=== PATIENT | male | born 1990 | race Caucasian/White ===

== ENCOUNTER 2018-03-26 17:00 | Observation (INO) ==
[2018-03-26] MEDS ORDERED: 0.9 % Sodium Chloride 1,000 ML IVC ONE (17:24)
--- NOTE | 2018-03-26 17:26 | Emergency Department Note ---
Disposition Clinical Impression: Suicidal ideation Drug-induced psychotic disorder Qualifiers: Complication of substance-induced condition: with unspecified complication Qualified Code(s): F19.959 - Other psychoactive substance use, unspecified with psychoactive substance-induced psychotic disorder, unspecified Disposition: Admitted As Inpatient General Adult HPI - General Chief complaint: ED Psychiatric Symptoms Stated complaint: SI,Took 2500Mg Dextromethphan Time Seen by Provider: 03/26/18 17:09 Source: patient Limitations: no limitations Nursing Notes Reviewed: Yes Vital Signs Reviewed: Yes - History of Present Illness HPI Narrative: Attestation note: Patient was seen with the emergency medicine resident/nurse practitioner/physician environmental services assistant/transitional resident/medical student: Dr. BRI LUBIN I have personally performed a face to face evaluation on this patient. I have reviewed and agree with history and physical examination patient management and disposition. Briefly the salient points of the case are as follows: 27-year-old male by EMS for intentional overdose on dextromethorphan. Patient took approximately 2500 mg dextromethorphan about 2 hours prior to arrival with a specific stated intent to harm or kill himself. History of depression ADHD he has had suicidal ideations in the past. Patient is cooperative also verbose and slightly agitated. Patient can EKG screening labs admission anticipated for medical clearance to the hospitalist service. We have consulted the poison control center, the [facility] and observation supportive care. Disposition pending admission anticipated. Pain Scale: 0 - Related Data Previous Rx's Medication Instructions Recorded BuPROPion XL (24 HR) [Wellbutrin 150 mg PO DAILY #30 tab.er.24h 02/19/16 Xl] Bupropion HCl [Wellbutrin Xl] 300 mg PO DAILY #10 tab.er.24h 03/11/18 Prazosin HCl [Minipress] 2 mg PO DAILY #10 capsule 03/11/18 Naproxen [Naprosyn] 500 mg PO BID #20 tablet 03/16/18 Allergies Allergy/AdvReac Type Severity Reaction Status Date / Time azithromycin [From Zithromax] Allergy Rash Verified 08/28/17 01:47 Past Medical History - Past Medical History Medical history: Reports: seizures Surgical history: Reports: tonsilectomy Psychiatric history: Reports: anxiety, depression, prior suicide attempt, previous psychiatric hospitalization - Social History Smoking Status: Former smoker Smokeless Tobacco Status: No Alcohol use: Reports: none Drug use: Reports: none Physical Exam - General Limitations: no limitations General appearance: alert, in no apparent distress Course Vital Signs Temperature 98.0 F 03/26/18 17:04 Pulse Rate 90 03/26/18 17:04 Respiratory Rate 20 03/26/18 17:04 Blood Pressure 175/90 03/26/18 17:04 O2 Sat by Pulse Oximetry 97 03/26/18 17:04 Temperature 98.0 F 03/26/18 17:04 Pulse Rate 90 03/26/18 17:04 Respiratory Rate 20 03/26/18 17:04 Blood Pressure 175/90 03/26/18 17:04 O2 Sat by Pulse Oximetry 97 03/26/18 17:04 Oxygen Delivery Oxygen Delivery Room Air
--- NOTE | 2018-03-26 17:28 | Emergency Department Note ---
Disposition Clinical Impression: Suicidal ideation, Suicide attempt Drug-induced psychotic disorder Qualifiers: Complication of substance-induced condition: with unspecified complication Qualified Code(s): F19.959 - Other psychoactive substance use, unspecified with psychoactive substance-induced psychotic disorder, unspecified Overdose Qualifiers: Encounter type: initial encounter Injury intent: intentional self-harm Qualified Code(s): T50.902A - Poisoning by unspecified drugs, medicaments and biological substances, intentional self-harm, initial encounter Disposition: Admitted As Inpatient Condition: Fair Referrals: NONE,PCP [Primary Care Provider] - Forms: ED Satisfaction Letter General Adult HPI - General Chief complaint: ED Psychiatric Symptoms Stated complaint: SI,Took 2500Mg Dextromethphan Time Seen by Provider: 03/26/18 17:09 Source: patient Mode of arrival: private vehicle Limitations: no limitations Nursing Notes Reviewed: Yes Vital Signs Reviewed: Yes - History of Present Illness HPI Narrative: 27-year-old male with past medical history including anxiety and depression, ADHD, prior history of IV drug use, presenting with chief complaint of suicidal ideation and attempt with drug overdose, 2 hours prior to arrival. Patient states he is under increased stressors. He has been having suicidal ideation. He states he usually gets high by taking dextromethorphan, 750 mg. He states 2 hours ago, he intentionally took 2500 mg Dextromethorphan (Delsym) 2 intentionally harm himself. He said it was an attempt to kill himself. He denies homicidal ideation. At present, he denies auditory visual hallucinations, however he states the medication does give him dissociation and he does start hearing things. He states he also took a monster and 5 hour energy drinks. He denies alcohol use or other IV drug use. Presenting for further evaluation. Denies chest pain, shortness of breath, abdominal pain, nausea, vomiting, diarrhea, any other complaints. Pain Scale: 0 - Related Data Previous Rx's Medication Instructions Recorded BuPROPion XL (24 HR) [Wellbutrin 150 mg PO DAILY #30 tab.er.24h 02/19/16 Xl] Bupropion HCl [Wellbutrin Xl] 300 mg PO DAILY #10 tab.er.24h 03/11/18 Prazosin HCl [Minipress] 2 mg PO DAILY #10 capsule 03/11/18 Naproxen [Naprosyn] 500 mg PO BID #20 tablet 03/16/18 Allergies Allergy/AdvReac Type Severity Reaction Status Date / Time azithromycin [From Zithromax] Allergy Rash Verified 08/28/17 01:47 All systems ED: reviewed and negative except as stated. Review of Systems: As Per HPI Constitutional: Denies: fever, chills ENT ED: Denies: congestion Cardiovascular: Denies: chest pain, palpitations Respiratory: Denies: cough, dyspnea Gastrointestinal: Denies: abdominal pain, nausea, vomiting, diarrhea Genitourinary: Denies: dysuria Neurological: Denies: headache, weakness Psychiatric: Reports: anxiety, depression, suicidal thoughts. Denies: auditory hallucinations, visual hallucinations Past Medical History - Past Medical History Attestation: Yes The following information was validated with the patient. Source: patient Medical history: Reports: seizures Surgical history: Reports: tonsilectomy Psychiatric history: Reports: anxiety, depression, prior suicide attempt, previous psychiatric hospitalization - Social History Smoking Status: Former smoker Smokeless Tobacco Status: No Alcohol use: Reports: none Drug use: Reports: none Physical Exam - General Limitations: no limitations General appearance: alert, in no apparent distress - Head Head exam: atraumatic, normocephalic - Eye Eye exam: Present: normal appearance, PERRL, EOMI - ENT ENT exam: normal exam, normal oropharynx, mucous membranes moist - Neck Neck exam: Present: normal inspection, trachea midline - Chest Chest inspection: Present: normal inspection, symmetric chest wall rise - Respiratory Respiratory exam: Present: normal lung sounds bilaterally. Absent: respiratory distress, wheezes - Cardiovascular Cardiovascular exam: Present: regular rate, normal rhythm, normal heart sounds - Abdominal Exam Abdominal exam: Present: soft, Non-Tender. Absent: tenderness, distention, guarding, rebound, rigidity - Extremities Exam Extremities exam: Present: normal inspection, full ROM, normal capillary refill. Absent: tenderness, pedal edema - Neurological Exam Neurological exam: Present: alert, oriented X3, CN II-XII intact - Psychiatric Psychiatric exam: Present: anxious, suicidal ideation - Skin Skin exam: Present: warm, dry, intact, normal color Course Vital Signs Temperature 98.0 F 03/26/18 17:04 Pulse Rate 90 03/26/18 17:04 Respiratory Rate 20 03/26/18 17:04 Blood Pressure 175/90 03/26/18 17:04 O2 Sat by Pulse Oximetry 97 03/26/18 17:04 Temperature 98.0 F 03/26/18 17:04 Pulse Rate 98 03/26/18 18:00 Respiratory Rate 14 03/26/18 18:00 Blood Pressure 157/103 03/26/18 18:00 O2 Sat by Pulse Oximetry 99 03/26/18 17:30 Oxygen Delivery Oxygen Delivery Room Air Medical Decision Making - MDM Narrative Medical decision making narrative: EKG, CBC, BMP, TSH, salicylate, ethanol level, acetaminophen level, urinalysis and urine drug screen will be obtained for medical clearance. Discussed with poison control CATINA Clark at 1720, supportive care and observation for 4-8 hours for dextromethorphan (Delsym) overdose. Also recommended adding magnesium and hepatic panel to the patient's labs. We will give 1 L IV fluids. Patient will be admitted to medical floor for observation overnight and once medically cleared, will have psychiatry consult. The pink slip has also been filled out and signed. 18:00 Labs reviewed. Urinalysis and urine tox is negative. Alcohol level, acetaminophen, salicylate level are not elevated. No electrolyte abnormality. Magnesium is normal. Hepatic panel is normal. Discussed with the hospitalist, Dr. Villa, who accepts admission. Once the patient is medically cleared, he will be evaluated by psychiatry/ 1a for his suicidal ideation and attempt. Patient's heart rate remains in the 80s to 90s, blood pressure slightly elevated 157/103, otherwise vitals have remained stable. The patient has no new complaints at this time. - Medical Records Medical records reviewed: Yes I reviewed the patient's medical records. - Lab Data Lab results reviewed: Yes I reviewed the patient's lab results. Result diagrams: 03/26/18 17:15 03/26/18 17:15 Lab Results 03/26/18 03/26/18 03/26/18 Range/Units 17:15 17:15 17:20 WBC 11.8 H (4.3-11.1) K/mcL RBC 4.80 (4.19-5.50) M/mcL Hgb 14.1 (12.9-16.9) g/dL Hct 41.7 (37.5-50.1) % MCV 86.9 (83.0-100.0) fL MCH 29.4 (28.0-33.3) pg MCHC 33.8 (31.6-35.5) g/dL RDW 13.1 (11.5-14.5) % Plt Count 325 (140-400) K/mcL MPV 9.3 L (9.4-12.4) fL Immature Gran % 0.3 (0-4) % Seg Neutrophils % 60.8 % Lymphocytes % 30.2 % Monocytes % 6.8 % Eosinophils % 1.4 % Basophils % 0.5 % Neutrophils # 7.2 (1.6-8.9) K/mcL Lymphocytes # 3.6 (0.6-4.6) K/mcL Monocytes # 0.8 (0.0-1.3) K/mcL Eosinophils # 0.2 (0.0-0.6) K/mcL Basophils # 0.1 (0.0-0.2) K/mcL Sodium 138 (136-145) mEq/L Potassium 4.0 (3.5-5.1) mEq/L Chloride 105 (98-107) mEq/L Carbon Dioxide 23 (23-29) mEq/L BUN 15 (6-20) mg/dL Creatinine 0.87 (0.70-1.30) mg/dL Est GFR ( Amer) > 60 (> 60) Est GFR (Non-Af Amer) > 60 (> 60) BUN/Creatinine Ratio 17 (6-26) Glucose 102 (70-105) mg/dL Calculated Osmolality 287 (280-300) Calcium 10.1 (8.6-10.3) mg/dL Magnesium 2.2 (1.6-2.6) mg/dL Total Bilirubin 0.3 (0.3-1.0) mg/dL Direct Bilirubin 0.0 (0.0-0.2) mg/dL Indirect Bilirubin 0.3 (0.0-1.2) mg/dL AST 24 (13-39) Units/L ALT 21 (7-52) Units/L Alkaline Phosphatase 89 (34-104) Units/L Serum Total Protein 7.0 (6.4-8.9) g/dL Albumin 4.8 (3.5-5.7) g/dL Globulin 2.2 L (2.4-3.5) g/dL Albumin/Globulin Ratio 2.2 (1.1-2.2) TSH 1.179 (0.340-5.600) mcIU/mL Urine Color Yellow (Yellow) Urine Clarity Clear (Clear) Urine pH 6.5 (5.0-8.0) pH Units Ur Specific [place] 1.017 (1.010-1.025) Urine Protein Negative (Neg-Trace) mg/dL Urine Glucose (UA) Normal (Normal) mg/dL Urine Ketones Negative (Negative) mg/dL Urine Blood Negative (Negative) Urine Nitrite Negative (Negative) Urine Bilirubin Negative (Negative) Urine Urobilinogen Normal (Normal) mg/dL Ur Leukocyte Esterase Negative (Negative) Salicylates < 2.5 L (15.0-30.0) mg/dL Urine Opiates Screen (Dtkwrd=560) ng/mL Acetaminophen < 10 L (10-20) mcg/mL Ur Barbiturates Screen (Zteeys=633) ng/mL Ur Phencyclidine Scrn (Cutoff=25) ng/mL Ur Amphetamines Screen (Xcnldh=6529) ng/mL U Benzodiazepines Scrn (Tqvsck=222) ng/mL Urine Cocaine Screen (Cutoff= 300) ng/mL U Marijuana (THC) Screen (Cutoff = 50) ng/mL Ur Drug Screen Interp Ethyl Alcohol < 10 (Less than 10) mg/dL 03/26/18 Range/Units 17:20 WBC (4.3-11.1) K/mcL RBC (4.19-5.50) M/mcL Hgb (12.9-16.9) g/dL Hct (37.5-50.1) % MCV (83.0-100.0) fL MCH (28.0-33.3) pg MCHC (31.6-35.5) g/dL RDW (11.5-14.5) % Plt Count (140-400) K/mcL MPV (9.4-12.4) fL Immature Gran % (0-4) % Seg Neutrophils % % Lymphocytes % % Monocytes % % Eosinophils % % Basophils % % Neutrophils # (1.6-8.9) K/mcL Lymphocytes # (0.6-4.6) K/mcL Monocytes # (0.0-1.3) K/mcL Eosinophils # (0.0-0.6) K/mcL Basophils # (0.0-0.2) K/mcL Sodium (136-145) mEq/L Potassium (3.5-5.1) mEq/L Chloride (98-107) mEq/L Carbon Dioxide (23-29) mEq/L BUN (6-20) mg/dL Creatinine (0.70-1.30) mg/dL Est GFR ( Amer) (> 60) Est GFR (Non-Af Amer) (> 60) BUN/Creatinine Ratio (6-26) Glucose (70-105) mg/dL Calculated Osmolality (280-300) Calcium (8.6-10.3) mg/dL Magnesium (1.6-2.6) mg/dL Total Bilirubin (0.3-1.0) mg/dL Direct Bilirubin (0.0-0.2) mg/dL Indirect Bilirubin (0.0-1.2) mg/dL AST (13-39) Units/L ALT (7-52) Units/L Alkaline Phosphatase (34-104) Units/L Serum Total Protein (6.4-8.9) g/dL Albumin (3.5-5.7) g/dL Globulin (2.4-3.5) g/dL Albumin/Globulin Ratio (1.1-2.2) TSH (0.340-5.600) mcIU/mL Urine Color (Yellow) Urine Clarity (Clear) Urine pH (5.0-8.0) pH Units Ur Specific [place] (1.010-1.025) Urine Protein (Neg-Trace) mg/dL Urine Glucose (UA) (Normal) mg/dL Urine Ketones (Negative) mg/dL Urine Blood (Negative) Urine Nitrite (Negative) Urine Bilirubin (Negative) Urine Urobilinogen (Normal) mg/dL Ur Leukocyte Esterase (Negative) Salicylates (15.0-30.0) mg/dL Urine Opiates Screen Negative (Eqirxw=814) ng/mL Acetaminophen (10-20) mcg/mL Ur Barbiturates Screen Negative (Tojceg=219) ng/mL Ur Phencyclidine Scrn Negative (Cutoff=25) ng/mL Ur Amphetamines Screen Negative (Ahhmjs=8142) ng/mL U Benzodiazepines Scrn Negative (Xuoimc=487) ng/mL Urine Cocaine Screen Negative (Cutoff= 300) ng/mL U Marijuana (THC) Screen Negative (Cutoff = 50) ng/mL Ur Drug Screen Interp See Below Ethyl Alcohol (Less than 10) mg/dL - EKG Data EKG #1 EKG attestation: Yes I reviewed and interpreted this EKG. EKG results narrative: EKG obtained today at 1727 shows sinus rhythm with heart rate 73. PT interval 147. QRS duration 71. QTC 410. No ST elevation or depression. Compared to old EKG on 01/10/2018 with no acute changes
[2018-03-26 17:33] LABS: Basophils # 0.1 K/mcL (0.0-0.2); Basophils % 0.5 %; Eosinophils # 0.2 K/mcL (0.0-0.6); Eosinophils % 1.4 %; Hematocrit 41.7 % (37.5-50.1); Hemoglobin 14.1 g/dL (12.9-16.9); Immature Granulocytes % 0.3 % (0-4); Lymphocytes # 3.6 K/mcL (0.6-4.6); Lymphocytes % 30.2 %; Mean Corpuscular HGB Conc 33.8 g/dL (31.6-35.5); Mean Corpuscular Hemoglobin 29.4 pg (28.0-33.3); Mean Corpuscular Volume 86.9 fL (83.0-100.0); Mean Platelet Volume 9.3 fL (9.4-12.4); Monocytes # 0.8 K/mcL (0.0-1.3); Monocytes % 6.8 %; Neutrophils # 7.2 K/mcL (1.6-8.9); Platelet Count 325 K/mcL (140-400); Red Cell Distribution Width 13.1 % (11.5-14.5); Segmented Neutrophils % 60.8 %
[2018-03-26 17:34] LABS: Bilirubin,Urine Negative (Negative); Blood,Urine Negative (Negative); Clarity,Urine Clear (Clear); Color,Urine Yellow (Yellow); Glucose,Urine (UA) Normal (Normal); Ketones,Urine Negative (Negative); Leukocyte Esterase,Urine Negative (Negative); Nitrite,Urine Negative (Negative); PH,Urine 6.5 pH Units (5.0-8.0); Protein,Urine Negative (Neg-Trace); Specific Gravity,Urine 1.017 (1.010-1.025); Urobilinogen,Urine Normal (Normal)
[2018-03-26 17:54] LABS: Amphetamine Screen,Urine Negative ng/mL (Cutoff=1000); Barbiturate Screen,Urine Negative ng/mL (Cutoff=200); Benzodiazepines Screen,Urine Negative ng/mL (Cutoff=200); Cannabinoid Screen,Urine Negative ng/mL (Cutoff = 50); Cocaine Screen,Urine Negative ng/mL (Cutoff= 300); Opiate Screen,Urine Negative ng/mL (Cutoff=300); Phencyclidine Screen,Urine Negative ng/mL (Cutoff=25)
[2018-03-26 17:58] LABS: Acetaminophen < 10 mcg/mL (10-20); Alanine Aminotransferase 21 Units/L (7-52); Albumin 4.8 g/dL (3.5-5.7); Albumin/Globulin Ratio 2.2 (1.1-2.2); Alkaline Phosphatase 89 Units/L (34-104); Aspartate Amino Transferase 24 Units/L (13-39); BUN/Creatinine Ratio 17 (6-26); Bilirubin,Indirect 0.3 mg/dL (0.0-1.2); Bilirubin,Total 0.3 mg/dL (0.3-1.0); Blood Urea Nitrogen 15 mg/dL (6-20); Calcium 10.1 mg/dL (8.6-10.3); Carbon Dioxide 23 mEq/L (23-29); Chloride 105 mEq/L (98-107); Ethanol < 10 mg/dL (Less than 10); Globulin 2.2 g/dL (2.4-3.5); Glucose 102 mg/dL (70-105); Magnesium 2.2 mg/dL (1.6-2.6); Osmolality,Calculated 287 (280-300); Salicylate < 2.5 mg/dL (15.0-30.0); Sodium 138 mEq/L (136-145); eGFR For Non-African Americans > 60 (> 60)
[2018-03-26 18:10] LABS: Thyroid Stimulating Hormone 1.179 mcIU/mL (0.340-5.600)
[2018-03-26] MEDS ORDERED: Naloxone 0.4 MG/ML INJ IVP PRN (18:26)
--- NOTE | 2018-03-26 18:36 | Internal Med History&Physical ---
Date of Encounter: 03/26/18 Time of Encounter: 18:35 Internal Medicine - H&P: HPI Chief complaint: Suicidal ideation with attempt by medication overdose History of present illness: Mr. Rivera is a 27 year old male with pmh of depression, suicidal ideation presenting today with an attempt to kill himself by overdosing on dextromethorpan. He reportedly took 2500mg. Patient says he read about sigmund frued dualism and was "trying to separate hi body from his mind' in order to communicate with his dad who about 6 years earlier, and he needs to come out to his dad that he is a homosexual. He is otherwise unable to provide a very good history. Posion control was contacted who recommended monitoring overnight for abnormal rhythms. He is currently in no acute distress otherwise and will be admitted for further management Past Med Surg Social Fam HX - Past Medical History Medical history: seizures Psychiatric history: anxiety, depression, prior suicide attempt, previous psychiatric hospitalization - Past Surgical History Surgical History: tonsilectomy Additional surgical history: tonsilectomy - Social History Smoking Status: Former smoker Smokeless Tobacco Status: No Alcohol use: none Drug use: none Internal Medicine - H&P: Meds BuPROPion XL (24 HR) [Wellbutrin Xl] 150 mg PO DAILY #30 tab.er.24h 02/19/16 [Rx] Bupropion HCl [Wellbutrin Xl] 300 mg PO DAILY #10 tab.er.24h 03/11/18 [Rx] Prazosin HCl [Minipress] 2 mg PO DAILY #10 capsule 03/11/18 [Rx] Naproxen [Naprosyn] 500 mg PO BID #20 tablet 03/16/18 [Rx] Allergy/AdvReac Type Severity Reaction Status Date / Time azithromycin [From Zithromax] Allergy Rash Verified 08/28/17 01:47 All Systems PM: A 10-system review of systems was performed and is negative for pertinent findings except as documented above in the HPI. - Constitutional Constitutional: no chills, no fever(s), no night sweats - EENT Eyes: no change in vision, no discharge, no pain, no photophobia Ears: no ear discharge, no ear pain, no tinnitus Nose, mouth and throat: no dysphagia, no nasal discharge, no neck pain, no sore throat - Cardiovascular Cardiovascular ROS IM: no chest pain, no diaphoresis, no dyspnea, no lightheadedness, no palpitations, no syncope - Respiratory Respiratory: no cough, no dyspnea, no wheezing, no excessive phlegm production - Gastrointestinal Gastrointestinal: no abdominal pain, no diarrhea, no hematemesis, no hematochezia, no melena, no nausea, no vomiting - Musculoskeletal Musculoskeletal ROS IM: no numbness, no tingling - Integumentary Integumentary IM: no rash, no unusual bruising - Neurological Neurological ROS: abnormal speech, no confusion, no convulsions, no focal weakness, no numbness, no tingling, no tremor(s) - Psychiatric Psychiatric: suicidal ideation - Hematologic/Lymphatic Hematologic/Lymphatic: no easy bruising - Constitutional Vitals: Temp Pulse Resp BP Pulse Ox 98.0 F 79 30 156/99 99 03/26/18 17:04 03/26/18 18:17 03/26/18 18:17 03/26/18 18:17 03/26/18 17:30 Exam: NAD - Head Head exam: Present: atraumatic, normocephalic - Eye Eye exam: Present: PERRL, conjuntiva pink, sclera anicteric Pupils: Present: PERRL - Neck Neck exam general surgery: Present: supple, trachea midline. Absent: lymphadenopathy - Respiratory Respiratory exam: Present: CTAB. Absent: accessory muscle use, rales, rhonchi, wheezes - Cardiovascular Cardiovascular exam: Present: RRR, +S1, +S2. Absent: diastolic murmur, gallop, rubs, systolic murmur - GI/Abdominal GI/Abdominal exam: Present: normal bowel sounds, soft, no peritoneal signs. Absent: distended, tenderness - Extremities Exam Extremities exam: Present: warm, radial pulses palpable and symmetrical. Absent: calf tenderness, cyanotic, pedal edema - Neurological Exam Neurological exam: Present: CN II-XII intact, oriented X3, no focal deficits. Absent: pronater drift, facial droop, speech deficit - Psychiatric Psychiatric exam: Present: manic, suicidal ideation - Skin Skin exam: Present: dry, intact Internal Med - H&P Results - Labs CBC & Chem 7: 03/26/18 17:15 03/26/18 17:15 Labs: Short CBC 03/26/18 Range/Units 17:15 WBC 11.8 H (4.3-11.1) K/mcL Hgb 14.1 (12.9-16.9) g/dL Hct 41.7 (37.5-50.1) % Plt Count 325 (140-400) K/mcL Neutrophils # 7.2 (1.6-8.9) K/mcL BMP 03/26/18 17:15 Sodium 138 Potassium 4.0 Chloride 105 Carbon Dioxide 23 BUN 15 Creatinine 0.87 Glucose 102 Calcium 10.1 Liver Function 03/26/18 Range/Units 17:15 Total Bilirubin 0.3 (0.3-1.0) mg/dL Direct Bilirubin 0.0 (0.0-0.2) mg/dL AST 24 (13-39) Units/L ALT 21 (7-52) Units/L Alkaline Phosphatase 89 (34-104) Units/L Albumin 4.8 (3.5-5.7) g/dL Urine 03/26/18 Range/Units 17:20 Urine Color Yellow (Yellow) Urine Clarity Clear (Clear) Urine pH 6.5 (5.0-8.0) pH Units Ur Specific [place] 1.017 (1.010-1.025) Urine Protein Negative (Neg-Trace) mg/dL Urine Glucose (UA) Normal (Normal) mg/dL - Assessment and plan (1) Suicidal ideation Current Visit: Yes Status: Acute Assessment and plan: Pt had a suicidal attempt today with an overdose of 2500mg of dextromethorphan. Poison control was contacted who recommended admitting and monitoring overnight Initial EKG was WNL with normal sinus rhythm. Will continue supportive care with IV fluids and cardiac monitoring. Psychiatry consult in am (they need to be called) (2) Acute psychosis Current Visit: Yes Status: Acute Assessment and plan: Pt is actively psychotic and says he can communicate with his father and is actively dissociating his body from his mind. Psych consult in am. Supportive care (3) Depression Current Visit: Yes Status: Acute Assessment and plan: Resume home meds with welbutrin. Psych consult in am Qualifiers: Depression Type: major depressive disorder Major depression recurrence: recurrent Active/Remission status: currently active Major depression episode severity: moderate Qualified Code(s): F33.1 - Major depressive disorder, recurrent, moderate (4) Hypertension Current Visit: Yes Status: Acute Assessment and plan: Hydralazine 10mg Iv q 6 prn Qualifiers: Hypertension type: other secondary hypertension Qualified Code(s): I15.8 - Other secondary hypertension (5) DVT prophylaxis Current Visit: Yes Status: Acute Assessment and plan: SCDs - Time Spent With Patient Total time spent is greater than 50% in coordination of care (as documented) at patient's floor/unit and/or counseling patient:
[2018-03-26] MEDS: 0.9 % Sodium Chloride 1,000 ML IVC SCH (21:15)
[2018-03-26] MEDS ORDERED: *HR* LORazepam 2 MG/ML VIAL IVP ONE (22:30)
[2018-03-27] MEDS ORDERED: Haloperidol Lactate 5 MG/ML VIAL IVP ONE (03:06)
--- NOTE | 2018-03-27 03:25 | Event Note ---
Date of Encounter: 03/26/18 Time of Encounter: 21:42 Alerted by pts. nurse Roni RN that patient was becoming agitated and required something to calm him down. Heart rate at the time was 154 and BP 166/89. Went to see patient immediately was laying in bed and clearly agitated. I asked the patient why he was so anxious. Patient proceeded to tell me how he had attempted to use Thong Valero's dualism hypothesis to try and separate his body from his mind in order to communicate with his father. Patient had taken 2500 mg of dextromethorphan to achieve this out of body experience. Pt. reports he tried to overdose on dextromethorphan in the past and took 720 mg when he was taken to [facility] and admitted for psychiatric hospitalization and observation. Attempt this time was almost 4x the amount of what he tried to overdose on previously. Patient has a history of anxiety, depression, prior suicide attempt, and previous psychiatric hospitalization. When I questioned the patient about his suicidal ideation, he adamantly denied trying to kill himself but instead referred back to the dualism hypothesis and how he felt he must communicate with his father. Patient's toxicology report was essentially negative. One-time order of 2 mg IVP Ativan ordered at 22:30 to try and help calm the patient down. Ativan was essentially ineffective. Went to see pt. who was still restless and anxious. Sitter in place. Notified at 02:52 the patient was requesting something to sleep and was doing pushups. VS at this time: BP 165/82, HR 99, SPO2 95% on 2L via NC. One-time order of Haldol 3 mg IV push ordered to continue to help calm the pt., as well as reduce his BP and HR. Pt. refused Haldol stating that it gives him muscle spasms. Went to see pt. who was awake and requesting a sleep aid. I informed the pt. that I would not be ordering a sleep aid such as Ambien or Seroquel d/t the increased risk of suicidal ideation. I stated that the Ativan had not been effective and we would not be using pharmaceuticals for sleep d/t his current dextromethorphan overdose. Nurse instructed to continue to monitor the pt. closely and notify me immediately of any adverse changes. Psychiatric consult already ordered.
[2018-03-27 04:34] LABS: Basophils # 0.1 K/mcL (0.0-0.2); Basophils % 0.7 %; Eosinophils # 0.1 K/mcL (0.0-0.6); Eosinophils % 0.6 %; Hematocrit 43.4 % (37.5-50.1); Hemoglobin 14.5 g/dL (12.9-16.9); Immature Granulocytes % 0.4 % (0-4); Lymphocytes # 2.9 K/mcL (0.6-4.6); Lymphocytes % 25.7 %; Mean Corpuscular HGB Conc 33.4 g/dL (31.6-35.5); Mean Corpuscular Hemoglobin 29.5 pg (28.0-33.3); Mean Corpuscular Volume 88.4 fL (83.0-100.0); Mean Platelet Volume 9.3 fL (9.4-12.4); Monocytes # 0.9 K/mcL (0.0-1.3); Monocytes % 8.3 %; Neutrophils # 7.3 K/mcL (1.6-8.9); Platelet Count 330 K/mcL (140-400); Red Blood Count 4.91 M/mcL (4.19-5.50); Red Cell Distribution Width 13.1 % (11.5-14.5); Segmented Neutrophils % 64.3 %
[2018-03-27 04:59] LABS: BUN/Creatinine Ratio 15 (6-26); Blood Urea Nitrogen 13 mg/dL (6-20); Calcium 9.7 mg/dL (8.6-10.3); Carbon Dioxide 28 mEq/L (23-29); Chloride 103 mEq/L (98-107); Glucose 98 mg/dL (70-105); Magnesium 2.1 mg/dL (1.6-2.6); Osmolality,Calculated 288 (280-300); Phosphorous 3.6 mg/dL (2.7-4.5); Potassium 4.1 mEq/L (3.5-5.1); Sodium 139 mEq/L (136-145); eGFR For Non-African Americans > 60 (> 60)
[2018-03-27] MEDS: 0.9 % Sodium Chloride 1,000 ML IVC SCH (07:25)
[2018-03-27] MEDS ORDERED: BuPROPion XL (24 HR) 150 MG TABLET PO SCH ×2 (09:00)
[2018-03-27 11:12] VITALS: BP 148/75
--- NOTE | 2018-03-27 12:03 | Consult Note ---
Date of Encounter: 03/27/18 Time of Encounter: 11:55 Assessment & Recommendation (1) Drug-induced psychotic disorder Current visit: Yes Status: Acute Assessment & Recommendation: Client appears manic at this time. Unclear if he has an underlying Bipolar Disorder or whether this is all substance induced. Would discontinue Wellbutrin as this is a stimulating antidepressant and can worsen tiffanie. Would recommend starting a mood stabilizer like Depakote 500mg BID. Client has previously taken Mccamey and does not want to restart it. Can transfer to inpatient psych when medically clear. Qualifiers: Complication of substance-induced condition: with unspecified complication Qualified Code(s): F19.959 - Other psychoactive substance use, unspecified with psychoactive substance-induced psychotic disorder, unspecified History of Present Illness Requesting Physician: Agustin John MD Reason for consult: other History of present illness: Mr. Rivera is a 27 year old male who presented to the hospital after a dextromethorphan overdose. According to client he was trying to communicate with his father and he was able to achieve this and had an 8 hour conversation with him yesterday. Client reports he tried this after reading Sigmcierra Freud's theory of dualism and quantum mechanics. Client denies this was a suicide attempt but admits to a suicide attempt via the same method in the past. Client estimates he has had three suicide attempts and five mental health hospitalizations in his life. Does not know his diagnosis but he appears manic at this time. Unclear if he is manic due to a primary mood disorder or whether his presentation is all substance induced. Client has a long history of AOD use. 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 Denies use of anything except THC in the last three months. Recently in skilled nursing for [facility]. Went to [facility] after release and kicked out yesterday. Vague as to why he was asked to leave. His goal now is to get into [facility]. Client has no supportive family. Reports they are all "drug addicts or drug dealers." Client seems low functioning. Poor historian. Mood is definitely elevated. Doing push-ups when this adjusto writer operator walked in the room. Pleasant but hyperkinetic and grandiose. CC: Agustin John MD Past Med Surg Social Fam HX - Past Medical History Medical history: seizures - Past Psychiatric History Psychiatric history: Reports: prior suicide attempt, previous psychiatric hospitalization Family psychiatric history: Yes Family Psychiatric History Details: everyone in family is "either a drug addict or dealer." Family History of Suicide: Unknown - Past Surgical History Surgical History: tonsilectomy - Social History Smoking Status: Former smoker Smokeless Tobacco Status: No Alcohol use: none Drug use: none - Family History Father Adopted: [place]: [place] Family Member Ethnicity: Non- Living Status: Age at : 54 Cause of : liver failure Hx Family Cardiac Disorders: No Hx Family Respiratory Disorders: No Hx Family Cancer: Yes (liver) Hx Family GI Disorders: No Hx Family Genitourinary Disorders: No Hx Family Endocrine Disorder: No Hx Family Musculoskeletal Disorders: No Hx Family Neuromuscular Disorders: No Hx Family Neurologic Disorders: No Hx Family HEENT Disorders: No Hx Family Autoimmune Disorders: No Hx Family Reproductive Disorders: No Hx Family Psychosocial Disorders: No Hx Family Medical Disorders: No Medications & Allergies Bupropion HCl [Wellbutrin Xl] 300 mg PO DAILY #10 tab.er.24h 03/11/18 [Rx] Naproxen [Naprosyn] 500 mg PO BID #20 tablet 03/16/18 [Rx] Prazosin HCl [Minipress] 2 mg PO HS 03/27/18 [History] Allergy/AdvReac Type Severity Reaction Status Date / Time azithromycin [From Zithromax] Allergy Hives Verified 03/27/18 08:37 Review of Systems Constitutional: Denies: fever, chills, weakness, weight change Eyes: Denies: eye pain, vision change Ears, Nose, Throat: Denies: ear pain, throat pain, dental pain, hearing loss, congestion Cardiovascular: Denies: chest pain, palpitations, dyspnea on exertion Respiratory: Denies: cough, dyspnea, wheezes Gastrointestinal: Denies: abdominal pain, nausea, vomiting, diarrhea, constipation Genitourinary male: Denies: urgency, dysuria, frequency, genital lesions Musculoskeletal: Denies: joint swelling, joint pain Integumentary: Denies: rash, lesions, pruritus Neurological: Denies: headache, weakness, numbness, memory loss Endocrine: Denies: fatigue, heat or cold intolerance Hematologic/Lymphatic: Denies: easy bruising, lymphadenopathy Allergic/Immunologic: Denies: urticaria, itchy eyes Psychiatry Exam - Constitutional Vitals: Temp Pulse Resp BP Pulse Ox 98.3 F 87 17 148/75 95 03/27/18 10:00 03/27/18 10:00 03/27/18 10:00 03/27/18 10:00 03/27/18 10:00 General appearance: age & developmentally appropriate - Musculoskeletal Gait: normal Station: relaxed Strength & Tone: normal for patient - Psychiatric Patient Orientation: Yes Person, Yes Time, Yes Place Level of alertness: Alert Behavior: calm, cooperative Psychomotor activity: Increased Eye Contact: Maintains Eye Contact Mood Description: Elevated Affect description: congruent with mood Speech Volume: Normal Speech pattern: normal rate, normal rhythm, normal tone, fluent, spontaneous Language & Vocabulary: consistent with education Thought Process: Tangential Thought Content: No Suicidal ideation, No Homicidal ideation, Yes Grandiose delusion Perceptual Disturbances: No Auditory hallucinations, No Visual hallucinations Attention Span Ability: Capable of Focused Attention Memory Description: Grossly Intact Patient Reliability: Questionable Historian Fund of knowledge: Yes abstraction ability Intelligence Estimate: Below Average Judgment: Limited Insight: Minimal Results - Drug Levels and Toxicology Drug Levels and Toxicology: Drug Levels and Toxicity 03/26/18 03/26/18 17:15 17:20 Urine Opiates Screen Negative Acetaminophen < 10 L Ur Barbiturates Screen Negative Ur Phencyclidine Scrn Negative Ur Amphetamines Screen Negative U Benzodiazepines Scrn Negative Urine Cocaine Screen Negative U Marijuana (THC) Screen Negative Ethyl Alcohol < 10 - Labs Labs: Laboratory Last Values WBC 11.4 K/mcL (4.3-11.1) H 03/27/18 04:13 RBC 4.91 M/mcL (4.19-5.50) 03/27/18 04:13 Hgb 14.5 g/dL (12.9-16.9) 03/27/18 04:13 Hct 43.4 % (37.5-50.1) 03/27/18 04:13 MCV 88.4 fL (83.0-100.0) 03/27/18 04:13 MCH 29.5 pg (28.0-33.3) 03/27/18 04:13 MCHC 33.4 g/dL (31.6-35.5) 03/27/18 04:13 RDW 13.1 % (11.5-14.5) 03/27/18 04:13 Plt Count 330 K/mcL (140-400) 03/27/18 04:13 MPV 9.3 fL (9.4-12.4) L 03/27/18 04:13 Immature Gran % 0.4 % (0-4) 03/27/18 04:13 Seg Neutrophils % 64.3 % 03/27/18 04:13 Lymphocytes % 25.7 % 03/27/18 04:13 Monocytes % 8.3 % 03/27/18 04:13 Eosinophils % 0.6 % 03/27/18 04:13 Basophils % 0.7 % 03/27/18 04:13 Neutrophils # 7.3 K/mcL (1.6-8.9) 03/27/18 04:13 Lymphocytes # 2.9 K/mcL (0.6-4.6) 03/27/18 04:13 Monocytes # 0.9 K/mcL (0.0-1.3) 03/27/18 04:13 Eosinophils # 0.1 K/mcL (0.0-0.6) 03/27/18 04:13 Basophils # 0.1 K/mcL (0.0-0.2) 03/27/18 04:13 Sodium 139 mEq/L (136-145) 03/27/18 04:13 Potassium 4.1 mEq/L (3.5-5.1) 03/27/18 04:13 Chloride 103 mEq/L (98-107) 03/27/18 04:13 Carbon Dioxide 28 mEq/L (23-29) 03/27/18 04:13 BUN 13 mg/dL (6-20) 03/27/18 04:13 Creatinine 0.87 mg/dL (0.70-1.30) 03/27/18 04:13 Est GFR ( Amer) > 60 (> 60) 03/27/18 04:13 Est GFR (Non-Af Amer) > 60 (> 60) 03/27/18 04:13 BUN/Creatinine Ratio 15 (6-26) 03/27/18 04:13 Glucose 98 mg/dL (70-105) 03/27/18 04:13 Calculated Osmolality 288 (280-300) 03/27/18 04:13 Calcium 9.7 mg/dL (8.6-10.3) 03/27/18 04:13 Phosphorus 3.6 mg/dL (2.7-4.5) 03/27/18 04:13 Magnesium 2.1 mg/dL (1.6-2.6) 03/27/18 04:13 Total Bilirubin 0.3 mg/dL (0.3-1.0) 03/26/18 17:15 Direct Bilirubin 0.0 mg/dL (0.0-0.2) 03/26/18 17:15 Indirect Bilirubin 0.3 mg/dL (0.0-1.2) 03/26/18 17:15 AST 24 Units/L (13-39) 03/26/18 17:15 ALT 21 Units/L (7-52) 03/26/18 17:15 Alkaline Phosphatase 89 Units/L (34-104) 03/26/18 17:15 Serum Total Protein 7.0 g/dL (6.4-8.9) 03/26/18 17:15 Albumin 4.8 g/dL (3.5-5.7) 03/26/18 17:15 Globulin 2.2 g/dL (2.4-3.5) L 03/26/18 17:15 Albumin/Globulin Ratio 2.2 (1.1-2.2) 03/26/18 17:15 TSH 1.179 mcIU/mL (0.340-5.600) 03/26/18 17:15 Urine Color Yellow (Yellow) 03/26/18 17:20 Urine Clarity Clear (Clear) 03/26/18 17:20 Urine pH 6.5 pH Units (5.0-8.0) 03/26/18 17:20 Ur Specific [place] 1.017 (1.010-1.025) 03/26/18 17:20 Urine Protein Negative mg/dL (Neg-Trace) 03/26/18 17:20 Urine Glucose (UA) Normal mg/dL (Normal) 03/26/18 17:20 Urine Ketones Negative mg/dL (Negative) 03/26/18 17:20 Urine Blood Negative (Negative) 03/26/18 17:20 Urine Nitrite Negative (Negative) 03/26/18 17:20 Urine Bilirubin Negative (Negative) 03/26/18 17:20 Urine Urobilinogen Normal mg/dL (Normal) 03/26/18 17:20 Ur Leukocyte Esterase Negative (Negative) 03/26/18 17:20 Salicylates < 2.5 mg/dL (15.0-30.0) L 03/26/18 17:15 Urine Opiates Screen Negative ng/mL (Vsuidb=178) 03/26/18 17:20 Acetaminophen < 10 mcg/mL (10-20) L 03/26/18 17:15 Ur Barbiturates Screen Negative ng/mL (Ziqfah=837) 03/26/18 17:20 Ur Phencyclidine Scrn Negative ng/mL (Cutoff=25) 03/26/18 17:20 Ur Amphetamines Screen Negative ng/mL (Wmkjre=9559) 03/26/18 17:20 U Benzodiazepines Scrn Negative ng/mL (Vtfpxu=542) 03/26/18 17:20 Urine Cocaine Screen Negative ng/mL (Cutoff= 300) 03/26/18 17:20 U Marijuana (THC) Screen Negative ng/mL (Cutoff = 50) 03/26/18 17:20 Ur Drug Screen Interp See Below 03/26/18 17:20 Ethyl Alcohol < 10 mg/dL (Less than 10) 03/26/18 17:15 Consult Discharge Plan - Plan Referrals: NONE,PCP [Primary Care Provider] -
--- NOTE | 2018-03-27 13:11 | Discharge Summary ---
- NOTES TO OUTPATIENT PROVIDER Notes to Outpatient Provider: PAtient with history of previous suicide attempts and 5 mental hospitalizations was admitted for intentional overdose of dextromethorphan. No intention of harming himself but is noted to be manic, likely due to stimulating antidepressant per psych. Observed overnight with te lemetry and remained stable (bouts of tachycardia were associated with the patient doing pushups constantly). Wellbutrin d/mai and transfer to psych floor with PO Depakote 500mg BID. Date of Encounter: 03/27/18 Time of Encounter: 11:00 - Discharge Diagnosis (1) Depression Priority: Secondary Status: Acute Qualifiers: Depression Type: major depressive disorder Major depression recurrence: recurrent Active/Remission status: currently active Major depression episode severity: moderate Qualified Code(s): F33.1 - Major depressive disorder, recurrent, moderate (2) Suicidal ideation Priority: Secondary Status: Acute (3) DVT prophylaxis Priority: Secondary Status: Acute (4) Acute psychosis Priority: Secondary Status: Acute (5) Hypertension Priority: Secondary Status: Acute Qualifiers: Hypertension type: other secondary hypertension Qualified Code(s): I15.8 - Other secondary hypertension (6) Drug-induced psychotic disorder Priority: Primary Status: Acute Qualifiers: Complication of substance-induced condition: with unspecified complication Qualified Code(s): F19.959 - Other psychoactive substance use, unspecified with psychoactive substance-induced psychotic disorder, unspecified Hospital course: Mr. Rivera is a 27 year old male with history of previous suicide attempts and 5 mental hospitalizations was admitted for intentional overdose of dextromethorphan. No intention of harming himself but is noted to be manic, like ly due to stimulating antidepressant per psych. Observed overnight with telemetry and remained stable (bouts of tachycardia were associated with the patient doing pushups constantly). Wellbutrin d/mai and transfer to psych floor with PO Depakote 500mg BID. Can start norvasc 5mg daily for HTN if BP remains poorly controlled once psychosis is better controlled. Discharge discussed with: patient, nurse - Time Spent with Patient Total time spent providing and/or coordinating discharge services: 23 mins - Discharge Medications Home Medications: Bupropion HCl [Wellbutrin Xl] 300 mg PO DAILY #10 tab.er.24h 03/11/18 [Rx] Naproxen [Naprosyn] 500 mg PO BID #20 tablet 03/16/18 [Rx] Prazosin HCl [Minipress] 2 mg PO HS 03/27/18 [History] Valproic Acid [Depakene] 500 mg PO BIDWM capsule 03/27/18 [Rx] Allergies/Adverse Reactions: Allergy/AdvReac Type Severity Reaction Status Date / Time azithromycin [From Zithromax] Allergy Hives Verified 03/27/18 08:37 Date of admission: 03/26/18 18:21 Primary care physician: PCP NONE Consults: 03/26/18 18:29 Consult to Psychiatry [CONS] Routine Consulting Provider: Psychiatry Rosalind Reason consult: Other 03/26/18 22:48 Consult to Ceramic Worker [CONS] Routine Reason for SW Consult: homeless - Constitutional Vitals: Temp Pulse Resp BP Pulse Ox 98.3 F 87 17 148/75 95 03/27/18 10:00 03/27/18 10:00 03/27/18 10:00 03/27/18 10:00 03/27/18 10:00 Exam: General: Alert, manic Cardiovascular:Normal S1 & S2, No JVD. Pulse regular. Lungs: clear to auscultation, no wheezes/rales Abdomen:Soft, non-tender, no rigidity. Extremities:No deformity or swelling - Patient Status Disposition: Transfer Other Condition: Fair - Discharge Instructions Instructions: Depression (DC) Follow Up With: NONE,PCP [Primary Care Provider] - Additional Instructions: D/c wellbutrin, start Depakote 500mg BID per psych recommendation - Diet and Activity Activity: resume usual activities as tolerated Diet: regular diet
[2018-03-27] MEDS ORDERED: Valproic Acid 250 MG CAPSULE PO ONE (13:30)
[2018-03-27] MEDS ORDERED: Valproic Acid 250 MG CAPSULE PO SCH (17:00)
--- NOTE | 2018-03-28 10:05 | Electrocardiograph Report ---
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
== END 2018-03-27 16:39 | disposition other institution (70) ==
LOC: 3BNU 17:00 → EMEROOARM 17:00 → SUATTDRO 18:21 → 3BNU 19:04
PROVIDERS: ADMIT Student in an Organized Health Care Education/Training Program; ATTEND Internal Medicine

== ENCOUNTER 2018-03-27 16:43 | Inpatient (IN) ==
[2018-03-27] MEDS ORDERED: MOM Conc 10 ML UD.LIQ PO PRN (17:38)
[2018-03-27] MEDS ORDERED: *HR* LORazepam 2 MG/ML VIAL IM PRN (17:38)
[2018-03-27] MEDS ORDERED: Haloperidol Lactate 5 MG/ML VIAL IM PRN (17:38)
[2018-03-27] MEDS ORDERED: *HR* LORazepam 1 MG TABLET PO PRN (17:38)
[2018-03-27] MEDS ORDERED: traZODone 50 MG TABLET PO PRN (17:38)
[2018-03-27] MEDS ORDERED: Mag Hydrox/Al Hydrox/Simeth 30 ML UDC PO PRN (17:38)
--- NOTE | 2018-03-28 09:34 | Psychiatry History & Physical ---
Date of Encounter: 03/28/18 Time of Encounter: 09:23 History of Present Illness Patient Stated Chief Complaint: tiffanie Medicare Admission Attestation: For traditional Medicare patients the provided hospital inpatient services are reasonable and necessary and in the case of services not specified as inpatient-only under 42 CFR 419.22 (n), that they are appropriately provided as inpatient services in accordance 42 CFR 412.3. For Critical Access Hospital the patient may reasonably be expected to be discharged or transferred to a hospital within 96 hours after admission to the Critical Access Hospital. Admitted From: Intrahospital Transfer Plans for Post Hospital Care: Transfer Other History of Present Illness: Mr. Rivera is a 27 year old male who was admitted as a transfer from the medical floor after her took a dextromethorphan overdose. When this speech writer evaluated him on the floor client was clearly manic. He had been exercising in his room all night and was doing push-ups when I walked in. He talked about taking the cough syrup to [facility] with his father and how he learned to overdose on it through reading Freud's theory of dualism and quantum physics. Unclear at that time if his tiffanie was due to a primary thought disorder or whether it was all substance induced. Today client is much calmer. Still has strange theories but now calls his overdose "foolish." Denies he was suicidal at the time he took the cough syrup and adamantly denies he is suicidal now. Slept all night. Likes to take Wellbutrin and was receiving this on the medical floor. This speech writer suggested it be held due to it's stimulating properties and to use a mood stabilizer like Depakote instead. Although client initially said he had never taken Depakote before, today he states he remembers being on it and does not like it. Does not want it continued and wants back on his Wellbutrin. Discussed how Wellbutrin was going to be held for a couple of days, especially since he is clearly doing better and that he can be reevaluated to take it again next week. At this time his clinical presentation is far more suggestive of a substance induced tiffanie and it is possible he can restart this medication in time. Client also takes Prazosin for nightmares and this will be restarted. Client is in a good mood today. Not interested in other medications and it does not appear like anything else is warranted at this time. Client has a history of multiple hospitalizations in the past but suspect these were more related to substance abuse than a primary mental illness. Client states his last drug use was three months ago. Using THC and Crystal Meth at that time. Also has a history of Heroin and Cocaine addictions. Client reports everyone in his family uses or deals drugs. No real supports. Was living in [facility] but client states he was kicked out earlier this week for having a relationship with another male client. Now wants to try and get into [facility]. Physical healthy but seems to have some cognitive limitations. Pleasant on the unit. Past Med Surg Social Fam HX - Past Medical History Medical history: seizures - Past Psychiatric History Psychiatric history: Reports: bipolar, depression, prior suicide attempt, previous psychiatric hospitalization Family psychiatric history: Yes Family Psychiatric History Details: client reports all family members use or deal drugs Family History of Suicide: Unknown - Past Surgical History Surgical History: tonsilectomy - Social History Smoking Status: Current every day smoker Smokeless Tobacco Status: No Alcohol use: none Drug use: none - Family History Father Adopted: [place]: [place] Family Member Ethnicity: Non- Living Status: Age at : 54 Cause of : Hep C; liver failure Hx Family Cardiac Disorders: No Hx Family Respiratory Disorders: No Hx Family Cancer: No Hx Family GI Disorders: No Hx Family Genitourinary Disorders: No Hx Family Endocrine Disorder: No Hx Family Musculoskeletal Disorders: No Hx Family Neuromuscular Disorders: No Hx Family Neurologic Disorders: No Hx Family HEENT Disorders: No Hx Family Autoimmune Disorders: No Hx Family Reproductive Disorders: No Hx Family Psychosocial Disorders: No Hx Family Medical Disorders: No Medications & Allergies Bupropion HCl [Wellbutrin Xl] 300 mg PO DAILY #10 tab.er.24h 03/11/18 [Rx] Naproxen [Naprosyn] 500 mg PO BID PRN 03/27/18 [History] Prazosin HCl [Minipress] 2 mg PO HS 03/27/18 [History] Valproic Acid [Depakene] 500 mg PO BIDWM capsule 03/27/18 [Rx] Allergy/AdvReac Type Severity Reaction Status Date / Time azithromycin [From Zithromax] Allergy Hives Verified 03/27/18 08:37 Review of Systems Constitutional: Denies: fever, chills, weakness, weight change Eyes: Denies: eye pain, vision change Ears, Nose, Throat: Denies: ear pain, throat pain, dental pain, hearing loss, congestion Cardiovascular: Denies: chest pain, palpitations, dyspnea on exertion Respiratory: Denies: cough, dyspnea, wheezes Gastrointestinal: Denies: abdominal pain, nausea, vomiting, diarrhea, constipation Genitourinary male: Denies: urgency, dysuria, frequency, genital lesions Musculoskeletal: Denies: joint swelling, joint pain Integumentary: Denies: rash, lesions, pruritus Neurological: Denies: headache, weakness, numbness, memory loss Endocrine: Denies: fatigue, heat or cold intolerance Hematologic/Lymphatic: Denies: easy bruising, lymphadenopathy Allergic/Immunologic: Denies: urticaria, itchy eyes Exam - HEENT Head exam IM: Present: atraumatic Eye exam IM: Present: EOMI, normal appearance, PERRL ENT exam IM: Present: normal exam - Neurological Neurological exam: Present: CN II-XII intact - Respiratory Respiratory exam IM: Present: CTAB - GI/Abdominal GI/Abdominal exam IM: Present: normal bowel sounds, soft. Absent: tenderness - Extremities Extremities exam IM: Present: full ROM - Skin Skin exam IM: Present: dry, warm - Constitutional Vitals: Temp Pulse Resp BP Pulse Ox 98.4 F 91 16 121/81 98 03/27/18 19:51 03/27/18 19:51 03/27/18 19:51 03/27/18 19:51 03/27/18 19:51 General appearance: age & developmentally appropriate, well-groomed, well- nourished - Musculoskeletal Gait: normal Station: relaxed Strength & Tone: normal for patient - Psychiatric Patient Orientation: Yes Person, Yes Time, Yes Place Level of alertness: Alert Behavior: calm, cooperative Psychomotor activity: Normal Eye Contact: Maintains Eye Contact Mood Description: Elevated Affect description: congruent with mood Speech Volume: Normal Speech pattern: normal rate, normal rhythm, normal tone, fluent, spontaneous Language & Vocabulary: consistent with education Thought Process: Tangential Thought Content: No Suicidal ideation, No Homicidal ideation, Yes Grandiose delusion Perceptual Disturbances: No Auditory hallucinations, No Visual hallucinations Attention Span Ability: Capable of Focused Attention Memory Description: Grossly Intact Patient Reliability: Reliable Historian Fund of knowledge: Yes abstraction ability, Yes average, Yes aware of current events Intelligence Estimate: Below Average Judgment: Limited Insight: Partial Assessment and Plan (1) Substance induced mood disorder Current visit: Yes Status: Acute Plan: Admit inpatient for safety and stabilization, Close observation, Suicide Precautions per unit protocol, Encourage participation in unit milieu, Group Therapy, Monitor sleep, Monitor appetite Risks, benefits, side effects, alternatives discussed w/pt: Yes Patient agreeable to treatment: Yes Plans for Post Hospital Care: Transfer Other Estimated Length of Stay (Days): 4
[2018-03-28] MEDS: Nicotine 2 MG GUM BC PRN ×4 (12:32→20:12)
[2018-03-28] MEDS: hydrOXYzine pamoate 25 MG CAPSULE PO PRN ×2 (18:01→20:04)
[2018-03-29] MEDS: Nicotine 2 MG GUM BC PRN ×4 (08:56→19:05)
--- NOTE | 2018-03-29 09:05 | Psychiatry Progress Note ---
Date of Encounter: 03/29/18 Time of Encounter: 09:02 Subjective Interval history: Seems to be doing well overall. Still has bizarre theories about Freud and quantum physics but he is much calmer when discussing these things. No longer appears outwardly manic. Pleasant on the unit. Needed Seroquel to help him sleep last night but slept well once he took it. Eating well. Denies SI/HI. Still wants Wellbutrin but aware this engineering technical writer won't be prescribing it. He may be safe to take it again down the road. Plan is to discharge him to [facility] or similar housing. Will discuss options with child protective services social worker tomorrow. Likely safe for discharge once housing found. Review of Systems Constitutional: Denies: fever, chills, weakness, weight change Eyes: Denies: eye pain, vision change Ears, Nose, Throat: Denies: ear pain, throat pain, dental pain, hearing loss, congestion Cardiovascular: Denies: chest pain, palpitations, dyspnea on exertion Respiratory: Denies: cough, dyspnea, wheezes Gastrointestinal: Denies: abdominal pain, nausea, vomiting, diarrhea, constipation Musculoskeletal: Denies: joint swelling, joint pain Neurological: Denies: headache, weakness, numbness, memory loss Results - Vital Signs Vital Signs: Temp Pulse Resp BP Pulse Ox 98.3 F 56 20 108/70 98 03/28/18 20:00 03/28/18 20:00 03/28/18 20:00 03/28/18 20:00 03/28/18 20:00 Assessment and Plan (1) Substance induced mood disorder Current visit: Yes Status: Acute Plan: Continue hospitalization, Close observation, Suicide Precautions per unit protocol, Encourage participation in unit milieu, Group Therapy, Monitor sleep, Monitor appetite Risks, benefits, side effects, alternatives discussed w/pt: Yes Patient agreeable to treatment: Yes Psychiatry Exam - Constitutional Vitals: Temp Pulse Resp BP Pulse Ox 98.3 F 56 20 108/70 98 03/28/18 20:03/28/18 20:00 03/28/18 20:00 03/28/18 20:03/28/18 20:00 General appearance: age & developmentally appropriate, well-groomed, well- nourished - Musculoskeletal Gait: normal Station: relaxed Strength & Tone: normal for patient - Psychiatric Patient Orientation: Yes Person, Yes Time, Yes Place Level of alertness: Alert Behavior: calm, cooperative Psychomotor activity: Normal Eye Contact: Maintains Eye Contact Mood Description: Euthymic/stable Affect description: congruent with mood Speech Volume: Normal Speech pattern: normal rate, normal rhythm, normal tone, fluent, spontaneous Language & Vocabulary: consistent with education Thought Process: Tangential Thought Content: No Suicidal ideation, No Homicidal ideation, Yes Grandiose delusion Perceptual Disturbances: No Auditory hallucinations, No Visual hallucinations Attention Span Ability: Capable of Focused Attention Memory Description: Grossly Intact Patient Reliability: Reliable Historian Fund of knowledge: Yes abstraction ability, Yes aware of current events Intelligence Estimate: Below Average Judgment: Limited Insight: Partial
[2018-03-30] MEDS: Nicotine 2 MG GUM BC PRN ×4 (08:51→17:08)
--- NOTE | 2018-03-30 09:40 | Psychiatry Progress Note ---
Date of Encounter: 03/30/18 Time of Encounter: 09:38 Subjective Interval history: Patient reports he is doing better as the dextromethorphan has gotten out of his system. He said that the 2500 ML that he took was a suicide attempt because of feeling down that he had relapsed on drugs. He reports that he has been feeling more depressed and anxious since being off Wellbutrin. He said he has tried other mood stabilizers and antidepressants but they made him feel numb. She does want to get back onto his Wellbutrin. His sleep is good. He is concerned about where he is going to stay as both his mother and cousin who are the options of people he could stay with are actively using. He said [facility] will not take him back due to his having a relationship while there. Review of Systems Neurological: Denies: headache, weakness, numbness, memory loss Psychiatric: Reports: depression, anxiety, abnormal sleep pattern, hopelessness Results - Vital Signs Vital Signs: Temp Pulse Resp BP Pulse Ox 98.5 F 65 18 116/65 99 03/30/18 08:52 03/30/18 08:52 03/30/18 08:52 03/30/18 08:52 03/30/18 08:52 Assessment and Plan (1) Drug-induced psychotic disorder Current visit: No Status: Acute Plan: Continue hospitalization, Close observation, Suicide Precautions per unit protocol, Group Therapy, Monitor sleep, Monitor appetite Additional Plan: Patient continues to have some mild grandiosity and increased motor activity and speech but he is sleeping well no longer experiencing auditory or visual hallucinations. He would like to get back on his Wellbutrin which she has previously had good success with. I will restart this at 150 by mouth every morning for depressive symptoms we discussed risk benefit side effects of this alternative treatment options. I will monitor for increased hypomanic symptoms. Risks, benefits, side effects, alternatives discussed w/pt: Yes Patient agreeable to treatment: Yes Qualifiers: Complication of substance-induced condition: with unspecified complication Qualified Code(s): F19.959 - Other psychoactive substance use, unspecified with psychoactive substance-induced psychotic disorder, unspecified Psychiatry Exam - Constitutional Vitals: Temp Pulse Resp BP Pulse Ox 98.5 F 65 18 116/65 99 03/30/18 08:52 03/30/18 08:52 03/30/18 08:52 03/30/18 08:52 03/30/18 08:52 General appearance: unkempt - Musculoskeletal Gait: brisk Station: shaky Strength & Tone: normal for patient - Psychiatric Patient Orientation: Yes Person, Yes Time, Yes Place Level of alertness: Alert Behavior: talkative, dramatic Psychomotor activity: Increased Eye Contact: Maintains Eye Contact Mood Description: Elevated Patient description of mood: "Okay" Affect description: anxious Speech Volume: Loud Speech pattern: rambling Language & Vocabulary: consistent with education Thought Process: Linear, Goal Oriented Thought Content: Yes Grandiose delusion Perceptual Disturbances: No Auditory hallucinations, No Visual hallucinations Attention Span Ability: Unable to Focus, Unable to Sustain Attention Memory Description: Grossly Intact Patient Reliability: Questionable Historian Fund of knowledge: Yes abstraction ability, Yes aware of current events Intelligence Estimate: Average Judgment: Limited Insight: Minimal
[2018-03-30] MEDS: BuPROPion XL (24 HR) 150 MG TABLET PO SCH (10:18)
[2018-03-31] MEDS: Nicotine 2 MG GUM BC PRN ×3 (08:27→18:32)
[2018-03-31] MEDS: BuPROPion XL (24 HR) 150 MG TABLET PO SCH (08:27)
--- NOTE | 2018-03-31 12:17 | Psychiatry Progress Note ---
Date of Encounter: 03/31/18 Time of Encounter: 11:50 Subjective Interval history: Patient is a 27 year old male who as admitted for intentional overdose of dextromethorphan. Today, patient speaks in a rapid, pressured tone and does exhibit some psychomotor agitation during interview. When asked about his mood, patient states "everything is real good except for my sleep paralysis. I've had sleep paralysis like 5 to 10 times since I've been here. I think maybe it was the dextromethorphan. I took a lot and it can be disassociating. 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 I've read that people with type 2 have hallucinations. Usually its an incubus or a demon sitting on their chest. I don't have that though." Patient states that he has had similar episodes of sleep paralysis since childhood. Mr. Rivera denies any acute concerns aside from the "sleep paralysis". He denies suicidal and homicidal ideation and states that he hasn't endorsed suicidal thoughts since Friday. When asked what has changed since Friday to make those thoughts disappear, patient states "I've had more time to think about what happened and how to cope with it." Today, patient denies depression, rating it a 0/10, 0 being none and 10 being the worst. Patient states that he does endorse "mild anxiety", but then elaborates "its not really anxiety. Its more like excess energy and if I don't do anything with it like exercise it turns to anxiety." Mr. Rivera denies any auditory and visual hallucinations today. He states that he did endorse some auditory hallucinations soon after his overdose, but that has since subsided. Patient endorses his appetite as "good" and was seen eating lunch prior to interview. Review of Systems Psychiatric: Reports: anxiety, abnormal sleep pattern. Denies: depression, suicidal ideation, change in appetite, homicidal ideation, auditory hallucinations, visual hallucinations Results - Vital Signs Vital Signs: Temp Pulse Resp BP Pulse Ox 98 F 74 18 100/65 99 03/31/18 09:00 03/31/18 09:00 03/31/18 09:00 03/31/18 09:00 03/31/18 09:00 Assessment and Plan (1) Substance-induced psychotic disorder Current visit: Yes Status: Resolved Plan: Continue hospitalization, Close observation, Suicide Precautions per unit protocol, Encourage participation in unit milieu, Group Therapy, Monitor sleep, Monitor appetite Additional Plan: Continue buproprion (150 mg po) for mood which he has previously had success with. Continue to monitor for hypomanic symptoms as well as side effects of medication. [place] was educated on risks, benefits, and alternative treatments. Plan to discharge when clinically stable. Risks, benefits, side effects, alternatives discussed w/pt: Yes Patient agreeable to treatment: Yes Consult Discharge Plan - Plan Referrals: NONE,PCP [Primary Care Provider] - - Attending Attestation I examined this patient and my medical decision-making was reviewed with the Resident Physician. I agree with the documented findings, disposition and treatment plan as described except to the extent set forth below. Psychiatry Exam - Constitutional Vitals: Temp Pulse Resp BP Pulse Ox 98 F 74 18 100/65 99 03/31/18 09:00 03/31/18 09:00 03/31/18 09:00 03/31/18 09:00 03/31/18 09:00 - Psychiatric Patient Orientation: Yes Person, Yes Time, Yes Place Level of alertness: Alert Behavior: restless, talkative Psychomotor activity: Abnormal movements (continuous hand movements; almost chorea like) Eye Contact: Maintains Eye Contact Mood Description: Euthymic/stable Patient description of mood: "good" Affect description: congruent with mood, full range Speech Volume: Loud Speech pattern: pressured Language & Vocabulary: consistent with education Thought Process: Circumstantial Thought Content: No Suicidal ideation, No Homicidal ideation, No Overt delusions Perceptual Disturbances: No Auditory hallucinations, No Visual hallucinations Attention Span Ability: Capable of Focused Attention Memory Description: Grossly Intact Patient Reliability: Reliable Historian Fund of knowledge: Yes abstraction ability, Yes aware of current events Intelligence Estimate: Average Judgment: Limited (demonstrates poor coping skills as evidenced by his recent intentional overdose) Insight: Partial (pt does recognize he is overly impulsive)
[2018-03-31] MEDS: Acetaminophen 325 MG TABLET PO PRN ×2 (16:26→22:18)
[2018-04-01] MEDS: BuPROPion XL (24 HR) 150 MG TABLET PO SCH (09:00)
[2018-04-01] MEDS ORDERED: BuPROPion XL (24 HR) 150 MG TABLET PO ONE (09:15)
[2018-04-01] MEDS: Acetaminophen 325 MG TABLET PO PRN ×3 (09:20→23:01)
[2018-04-01] MEDS: Nicotine 2 MG GUM BC PRN ×4 (09:21→21:38)
--- NOTE | 2018-04-01 12:39 | Psychiatry Progress Note ---
Date of Encounter: 04/01/18 Time of Encounter: 12:20 Subjective Interval history: Patient is a 27 year old male who was admitted after an intentional overdose. Patient is sitting still during interview today and is significantly less circumstantial. Today patient endorses his mood as "pretty good". He denies active and passive suicidal and homicidal ideation as well as auditory and visual hallucinations. When asked to rate depression 0 to 10, patient states "its low like a 3." He continues on "I don't wanna say I'm in a sense of depression. Its more like waiting. I'm ready to move on." Mr. Rivera rates his anxiety as a 3/10 as well and states that his anxiety also stems from wanting to "move on". [place] denies side effects from his medications. He endorses sleeping approximately 7 hours last night and denies experiencing "sleep paralysis". He continues on "I had a weird dream. There was this person killing everybody and I remember him saying 'No matter how many different sounds you all make, my sounds will always be the same." Patient continues on "I had another dream about a plant eating people..." Aside from the peculiar dreams, he expresses no acute concerns. Review of Systems Psychiatric: Reports: depression, anxiety. Denies: abnormal sleep pattern, suicidal ideation, change in appetite, homicidal ideation, auditory hallucinations, visual hallucinations Results - Vital Signs Vital Signs: Temp Pulse Resp BP Pulse Ox 98 F 76 18 125/78 99 04/01/18 09:00 04/01/18 09:00 04/01/18 09:00 04/01/18 09:00 04/01/18 09:00 Assessment and Plan (1) Substance-induced psychotic disorder Current visit: Yes Status: Resolved Plan: Continue hospitalization, Close observation, Suicide Precautions per unit protocol, Encourage participation in unit milieu, Group Therapy, Monitor sleep, Monitor appetite Additional Plan: Continue buproprion (150 mg po) for mood which he has previously had success with. Continue to monitor for hypomanic symptoms as well as side effects of medication. [place] was educated on risks, benefits, and alternative treatments. Plan to discharge when clinically stable. Risks, benefits, side effects, alternatives discussed w/pt: Yes Patient agreeable to treatment: Yes Consult Discharge Plan - Plan Additional Instructions: Discharge when clinically stable. Referrals: NONE,PCP [Primary Care Provider] - Psychiatry Exam - Constitutional Vitals: Temp Pulse Resp BP Pulse Ox 98 F 76 18 125/78 99 04/01/18 09:00 04/01/18 09:00 04/01/18 09:00 04/01/18 09:00 04/01/18 09:00 General appearance: age & developmentally appropriate, well-groomed, well- nourished Additional observations: poor dentition - Psychiatric Patient Orientation: Yes Person, Yes Time, Yes Place Level of alertness: Alert Behavior: calm, cooperative Psychomotor activity: Normal (Significantly less psychomotor agitation today; patient able to sit still during interview) Eye Contact: Maintains Eye Contact Mood Description: Euthymic/stable Patient description of mood: "pretty good" Affect description: congruent with mood, full range, euthymic Speech Volume: Normal Speech pattern: normal rate, normal rhythm, normal tone Language & Vocabulary: consistent with education Thought Process: Intact, Logical, Linear (significantly less circumstantial and more linear today) Thought Content: Yes Intact, No Suicidal ideation, No Homicidal ideation Perceptual Disturbances: No Auditory hallucinations, No Visual hallucinations Attention Span Ability: Capable of Focused Attention Memory Description: Grossly Intact Patient Reliability: Reliable Historian Fund of knowledge: Yes abstraction ability, Yes aware of current events Intelligence Estimate: Average Judgment: Limited Insight: Partial
--- NOTE | 2018-04-02 06:11 | Discharge Summary ---
Date of Encounter: 04/02/18 Time of Encounter: 06:08 Diagnosis - Discharge Diagnosis (1) Substance-induced psychotic disorder Status: Resolved Medications - Discharge Medications Prescriptions: Bupropion HCl [Wellbutrin Xl] 300 mg PO DAILY #30 tab.er.24h hydrOXYzine pamoate [HydrOXYzine Pamoate] 25 mg PO TID PRN #60 capsule PRN Reason: Anxiety Prazosin [Minipress] 3 mg PO HS #90 capsule Quetiapine Fumarate [Seroquel] 50 mg PO HS PRN #60 tablet PRN Reason: Insomnia Naproxen [Naprosyn] 500 mg PO BID PRN 03/27/18 [History] Bupropion HCl [Wellbutrin Xl] 300 mg PO DAILY #30 tab.er.24h 04/02/18 [Rx] Prazosin [Minipress] 3 mg PO HS #90 capsule 04/02/18 [Rx] Quetiapine Fumarate [Seroquel] 50 mg PO HS PRN #60 tablet 04/02/18 [Rx] hydrOXYzine pamoate [HydrOXYzine Pamoate] 25 mg PO TID PRN #60 capsule 04/02/18 [Rx] Allergy/AdvReac Type Severity Reaction Status Date / Time azithromycin [From Zithromax] Allergy Hives Verified 03/27/18 08:37 Provider Date of admission: 03/27/18 16:43 Primary care physician: PCP NONE Discharging clinician: Abena Mulligan Psychiatry Exam - Constitutional Vitals: Temp Pulse Resp BP Pulse Ox 98.7 F 68 18 126/68 99 04/01/18 20:27 04/01/18 20:27 04/01/18 20:27 04/01/18 20:27 04/01/18 20:27 Additional observations: Patient is alert and oriented [address] time and situation, muscle tone grossly intact, speech normal limits for rhythm, rate, content and volume. Muscle tone is normal for patient. Grooming and hygiene are appropriate and eye contact is maintained appropriately. The patient appears age appropriate. Behavior is cooperative. Thought content is negative for suicidal or homicidal thoughts ideations or plans. There are no hallucinations or delusions. Mood is good and affect is reactive, consistent and congruent. Thought process is linear, logical, goal oriented and coherent thought. Memory is intact to recent and remote as the patient is able to recall several items after a delay and can consistently recall childhood information. Language and vocabulary are consistent with education and intelligence is estimated to be average based on education and general fund of information. Concentration and attention are sustained and appropriate. Insight and judgment are intact as the patient agrees with the diagnosis and the need for ongoing mental health treatment. Hospital Course Hospital course: Mr. Rivera is a 27 year old male who was admitted from the medical unit following an overdose on dextromethorphan. He said that this was an intentional overdose as he was feeling depressed hopeless with decreased interest feelings of guilt and worthlessness prior to the overdose. However after and while on the medical unit he was manic with increased elevated mood increased motor activity he was noted to be doing pushups on the unit. His pulse and blood pressure were elevated. As the dextromethorphan left his system he returned to having depressive symptoms and was started on Wellbutrin for these. He tolerated this well. He also use when necessary Seroquel and trazodone at night for sleep and Vistaril for anxiety. Patient was educated of diagnosis and the risk-benefit side effects of this alternative treatment options and was monitored for responsiveness and side effects. Mood anxiety sleep and appetite interest improved as did future orientation. Self-harm thoughts subsided, thinking cleared, psychosis resolved, and mood stabilized. Patient was able to attend both individual and group therapy sessions as well as meeting with the psychiatrist daily and urged to discuss any medication or treatment issues or other concerns. The patient was educated primarily by verbal means about their diagnosis and manifestations in their life. The option for treatment including group and individual therapy programming was offered to the patient in the use of medications with all their potential risks, benefits, and side effects were discussed with the patient at length. The patient was given the opportunity to ask questions and was noted to participate in the treatment in the planning process. The patient felt ready and eager to be discharged from the inpatient psychiatric unit to continue on with treatment as an outpatient. The patient agreed that is they were safe for this disposition. The patient was considered to be able to participate in informed consent and decision making with respect to medical, legal, and financial issues of the time of discharge. At the time of discharge the patient adamantly denied any concerns for lethality including suicidal or homicidal thoughts ideations or plans and was future oriented toward ongoing mental health care, medical follow-up and sobriety. Time spent discussing smoking cessation with patient: 3 to 10 minutes Does patient wish to continue nicotine replacement upon disc: No - Time Spent with Patient Total time spent providing and/or coordinating discharge services: Less than 30 minutes Assessment and Plan - Patient/Caregiver Discharge Instructions Activity: resume usual activities as tolerated Diet: regular diet Additional Instructions: Continue current medications. Follow up with outpatient mental health. Encourage continued therapy in a group or individual setting. The patient was discharged to home. - Follow up Plan Follow up with: NONE,PCP [Primary Care Provider] - Functional capacity at discharge: independent ambulation Overall status at discharge: Stable Disposition: Home, Self-Care Quality - Multiple Antipsychotics Patient discharged on 2 or more antipsychotic medications: No Procedures - Procedures Procedures: Medication Management, Crisis Stabilization, Supportive Therapy, Group Therapy, Psychoeducational Therapy
[2018-04-02] MEDS: Acetaminophen 325 MG TABLET PO PRN ×2 (06:30→14:06)
[2018-04-02] MEDS: Nicotine 2 MG GUM BC PRN ×3 (08:33→17:18)
[2018-04-02 08:56] VITALS: BP 123/69
[2018-04-02] MEDS ORDERED: BuPROPion XL (24 HR) 150 MG TABLET PO SCH (09:00)
[2018-04-02] MEDS: hydrOXYzine pamoate 25 MG CAPSULE PO PRN (10:10)
== END 2018-04-02 18:40 | disposition home or self-care (01) | DRG 776 ==
LOC: SUATTDRO 16:43 → 1ANU 16:43
PROVIDERS: ADMIT Psychiatry & Neurology Psychiatry; ATTEND Psychiatry & Neurology Psychiatry

== ENCOUNTER 2019-08-19 12:11 | Observation (INO) ==
[2019-08-19 12:52] LABS: Basophils # 0.1 K/mcL (0.0-0.2); Basophils % 0.3 %; Eosinophils # 0.1 K/mcL (0.0-0.6); Eosinophils % 0.6 %; Hematocrit 44.1 % (37.5-50.1); Hemoglobin 14.6 g/dL (12.9-16.9); Immature Granulocytes % 0.7 % (0-4); Lymphocytes # 2.6 K/mcL (0.6-4.6); Lymphocytes % 12.8 %; Mean Corpuscular HGB Conc 33.1 g/dL (31.6-35.5); Mean Corpuscular Hemoglobin 28.7 pg (28.0-33.3); Mean Corpuscular Volume 86.8 fL (83.0-100.0); Monocytes # 1.3 K/mcL (0.0-1.3); Monocytes % 6.2 %; Neutrophils # 16.3 K/mcL (1.6-8.9); Platelet Count 245 K/mcL (140-400); Red Blood Count 5.08 M/mcL (4.19-5.50); Red Cell Distribution Width 12.5 % (11.5-14.5); Segmented Neutrophils % 79.4 %; White Blood Count 20.6 K/mcL (4.3-11.1)
[2019-08-19] MEDS ORDERED: 0.9 % Sodium Chloride 1,000 ML IVC ONE (12:57)
[2019-08-19] MEDS ORDERED: *HR* LORazepam 2 MG/ML VIAL IVP ONE (12:57)
[2019-08-19 13:55] LABS: Acetaminophen < 10 mcg/mL (10-20); Alanine Aminotransferase 43 Units/L (7-52); Albumin 4.8 g/dL (3.5-5.7); Albumin/Globulin Ratio 1.9 (1.1-2.2); Alkaline Phosphatase 80 Units/L (34-104); Aspartate Amino Transferase 28 Units/L (13-39); BUN/Creatinine Ratio 13 (6-26); Bilirubin,Indirect 0.4 mg/dL (0.0-1.0); Bilirubin,Total 0.4 mg/dL (0.3-1.0); Blood Urea Nitrogen 11 mg/dL (6-20); Calcium 8.8 mg/dL (8.6-10.3); Carbon Dioxide 24 mEq/L (23-29); Chloride 104 mEq/L (98-107); Ethanol < 10 mg/dL (Less than 10); Globulin 2.5 g/dL (2.4-3.5); Glucose 77 mg/dL (70-105); Magnesium 2.2 mg/dL (1.6-2.6); Osmolality,Calculated 284 (280-300); Potassium 3.5 mEq/L (3.5-5.1); Salicylate < 2.5 mg/dL (15.0-30.0); Sodium 138 mEq/L (136-145); Total Protein 7.3 g/dL (6.4-8.9); Troponin I < 0.03 ng/mL (< 0.04); eGFR For African Americans > 60 (> 60); eGFR For Non-African Americans > 60 (> 60)
[2019-08-19] MEDS ORDERED: Ondansetron 4 MG/2 ML VIAL IVP PRN (14:08)
[2019-08-19] MEDS ORDERED: Naloxone 0.4 MG/ML INJ IVP PRN (14:08)
[2019-08-19] MEDS ORDERED: Potassium Chloride Elixir 20 MEQ/15 ML UDC PO ONE (14:08)
[2019-08-19] MEDS ORDERED: Calcium Gluconate 1gm/50mL 1 GM/50 ML BAG IVPB ONE (14:08)
[2019-08-19] MEDS ORDERED: *HR* LORazepam 2 MG/ML VIAL IVP PRN (14:13)
[2019-08-19 15:21] LABS: Bilirubin,Urine Negative (Negative); Blood,Urine Negative (Negative); Clarity,Urine Clear (Clear); Color,Urine Colorless (Yellow); Glucose,Urine (UA) Normal (Normal); Ketones,Urine Negative (Negative); Leukocyte Esterase,Urine Negative (Negative); Nitrite,Urine Negative (Negative); Protein,Urine Negative (Neg-Trace); Specific Gravity,Urine 1.015 (1.010-1.025); Urobilinogen,Urine Normal (Normal)
[2019-08-19 15:35] LABS: Amphetamine Screen,Urine Negative ng/mL (Cutoff=1000); Barbiturate Screen,Urine Negative ng/mL (Cutoff=200); Benzodiazepines Screen,Urine Negative ng/mL (Cutoff=200); Cannabinoid Screen,Urine Negative ng/mL (Cutoff = 50); Cocaine Screen,Urine Negative ng/mL (Cutoff= 300); Opiate Screen,Urine Negative ng/mL (Cutoff=300); Phencyclidine Screen,Urine Negative ng/mL (Cutoff=25)
[2019-08-19] MEDS: Ringers Solution, Lactated 1,000 ML IVC SCH (16:04)
[2019-08-20] MEDS: Ringers Solution, Lactated 1,000 ML IVC SCH (05:06)
[2019-08-20 07:17] LABS: Basophils # 0.1 K/mcL (0.0-0.2); Basophils % 0.7 %; Eosinophils # 0.3 K/mcL (0.0-0.6); Eosinophils % 3.7 %; Hematocrit 41.5 % (37.5-50.1); Immature Granulocytes % 0.2 % (0-4); Lymphocytes # 2.9 K/mcL (0.6-4.6); Lymphocytes % 35.7 %; Mean Corpuscular HGB Conc 33.7 g/dL (31.6-35.5); Mean Corpuscular Hemoglobin 29.4 pg (28.0-33.3); Mean Platelet Volume 9.1 fL (9.4-12.4); Monocytes # 0.8 K/mcL (0.0-1.3); Monocytes % 10.4 %; Platelet Count 232 K/mcL (140-400); Red Blood Count 4.77 M/mcL (4.19-5.50); Red Cell Distribution Width 12.6 % (11.5-14.5); Segmented Neutrophils % 49.3 %; White Blood Count 8.1 K/mcL (4.3-11.1)
[2019-08-20] MEDS ORDERED: BuPROPion XL (24 HR) 150 MG TABLET PO SCH (09:15)
[2019-08-20 11:24] LABS: Blood Urea Nitrogen 13 mg/dL (6-20); Calcium 9.4 mg/dL (8.6-10.3); Carbon Dioxide 28 mEq/L (23-29); Chloride 103 mEq/L (98-107); Glucose 101 mg/dL (70-105); Magnesium 2.1 mg/dL (1.6-2.6); Osmolality,Calculated 282 (280-300); Potassium 4.1 mEq/L (3.5-5.1); Sodium 136 mEq/L (136-145)
[2019-08-20 12:06] LABS: BUN/Creatinine Ratio 15 (6-26); eGFR For African Americans > 60 (> 60); eGFR For Non-African Americans > 60 (> 60)
[2019-08-20 12:22] VITALS: BP 148/93
[2019-08-20] MEDS ORDERED: hydrOXYzine pamoate 25 MG CAPSULE PO SCH (15:00)
[2019-08-20 17:17] LABS: BUN/Creatinine Ratio 17 (6-26); Blood Urea Nitrogen 14 mg/dL (6-20); Calcium 9.5 mg/dL (8.6-10.3); Carbon Dioxide 24 mEq/L (23-29); Chloride 105 mEq/L (98-107); Glucose 107 mg/dL (70-105); Magnesium 2.2 mg/dL (1.6-2.6); Osmolality,Calculated 285 (280-300); Potassium 3.9 mEq/L (3.5-5.1); Sodium 137 mEq/L (136-145); eGFR For African Americans > 60 (> 60); eGFR For Non-African Americans > 60 (> 60)
== END 2019-08-20 15:16 ==
LOC: EMEROOARM 12:11 → 3BNU 12:11 → SUATTDRO 14:08 → 3BNU 15:24
PROVIDERS: ADMIT Internal Medicine; ATTEND Internal Medicine

== ENCOUNTER 2019-08-20 14:49 | Inpatient (IN) ==
[2019-08-20] MEDS ORDERED: Mag Hydrox/Al Hydrox/Simeth 30 ML UDC PO PRN (15:29)
[2019-08-20] MEDS ORDERED: *HR* LORazepam 1 MG TABLET PO PRN (15:29)
[2019-08-20] MEDS ORDERED: *HR* LORazepam 2 MG/ML VIAL IM PRN (15:29)
[2019-08-20] MEDS ORDERED: MOM Conc 10 ML UD.LIQ PO PRN (15:29)
[2019-08-20] MEDS ORDERED: Haloperidol Lactate 5 MG/ML VIAL IM PRN (15:29)
[2019-08-20] MEDS ORDERED: haloperidoL 5 MG TABLET PO PRN (15:29)
[2019-08-20] MEDS ORDERED: Nicotine 21 MG PATCH.TD24 TD SCH (15:30)
[2019-08-20] MEDS: Ibuprofen 400 MG TABLET PO PRN (20:07)
[2019-08-20] MEDS: hydrOXYzine pamoate 25 MG CAPSULE PO SCH (20:07)
[2019-08-20] MEDS: Nicotine 2 MG GUM BC PRN (20:07)
[2019-08-21] MEDS: BuPROPion XL (24 HR) 150 MG TABLET PO SCH (09:11)
[2019-08-21] MEDS: Ziprasidone 20 MG CAPSULE PO SCH ×2 (09:12→20:06)
[2019-08-21] MEDS: hydrOXYzine pamoate 25 MG CAPSULE PO SCH ×3 (09:12→20:06)
[2019-08-21] MEDS: Nicotine 2 MG GUM BC PRN (09:34)
[2019-08-21] MEDS: Ibuprofen 400 MG TABLET PO PRN (20:06)
[2019-08-22] MEDS: Ziprasidone 20 MG CAPSULE PO SCH ×2 (08:48→20:18)
[2019-08-22] MEDS: BuPROPion XL (24 HR) 150 MG TABLET PO SCH (08:48)
[2019-08-22] MEDS: Nicotine 2 MG GUM BC PRN ×3 (09:51→20:52)
[2019-08-22] MEDS ORDERED: Loratadine/Pseudophed (12 HR) 1 EACH TABLET PO ONE (10:30)
[2019-08-22] MEDS: hydrOXYzine pamoate 25 MG CAPSULE PO SCH (10:36)
[2019-08-22] MEDS: Loratadine/Pseudophed (12 HR) 1 EACH TABLET PO SCH (20:18)
[2019-08-22] MEDS: traZODone 50 MG TABLET PO PRN (23:14)
[2019-08-22] MEDS: hydrOXYzine pamoate 25 MG CAPSULE PO PRN (23:14)
[2019-08-23] MEDS: Loratadine/Pseudophed (12 HR) 1 EACH TABLET PO SCH ×2 (08:37→20:57)
[2019-08-23] MEDS: BuPROPion XL (24 HR) 150 MG TABLET PO SCH (08:37)
[2019-08-23] MEDS: Ziprasidone 20 MG CAPSULE PO SCH ×2 (08:37→20:57)
[2019-08-23] MEDS: Nicotine 2 MG GUM BC PRN ×4 (11:24→20:58)
[2019-08-23] MEDS: hydrOXYzine pamoate 25 MG CAPSULE PO PRN ×2 (11:24→20:57)
[2019-08-23] MEDS: Ibuprofen 400 MG TABLET PO PRN (20:57)
[2019-08-24] MEDS: Ziprasidone 20 MG CAPSULE PO SCH ×2 (08:18→20:58)
[2019-08-24] MEDS: BuPROPion XL (24 HR) 150 MG TABLET PO SCH (08:18)
[2019-08-24] MEDS: Loratadine/Pseudophed (12 HR) 1 EACH TABLET PO SCH ×2 (08:18→20:58)
[2019-08-24] MEDS: Nicotine 2 MG GUM BC PRN ×4 (11:16→21:44)
[2019-08-24] MEDS: traZODone 50 MG TABLET PO PRN (23:03)
[2019-08-25] MEDS: Loratadine/Pseudophed (12 HR) 1 EACH TABLET PO SCH (08:05)
[2019-08-25] MEDS: Ziprasidone 20 MG CAPSULE PO SCH (08:05)
[2019-08-25] MEDS: BuPROPion XL (24 HR) 150 MG TABLET PO SCH (08:05)
[2019-08-25 08:13] VITALS: BP 125/78
== END 2019-08-25 09:40 | disposition home or self-care (01) | DRG 751 ==
LOC: 1ANU 14:49 → SUATTDRO 15:29 → 1ANU 21:13
PROVIDERS: ADMIT Psychiatry & Neurology Psychiatry; ATTEND Psychiatry & Neurology Psychiatry